=== PATIENT | female | born 1980 | race Caucasian/White ===

== ENCOUNTER 2016-11-20 16:57 | Emergency (ER) | payer MEDICAID ==
[2016-11-20 17:26] VITALS: BP 104/79; PULSE 88; RESP 18; TEMP 97.7; O2SAT 94
--- NOTE | 2016-11-20 17:48 | UCPHY ---
H & P Patient Type: Established Chief Complaint Nursing Narrative: R knee pain x 1 week, no trauma. cms intact. pain worse when going up and down stairs. Time Seen by Provider: 11/20/16 17:34 HPI/ROS: CHIEF COMPLAINT: Right knee pain HISTORY OF PRESENT ILLNESS: Patient is a 36-year-old healthy female who comes to the Urgent Care with her daughter who is also ill. The patient thought that she would get her knee evaluated while she was here. She has pain in her right knee when walking up the stairs. It does not hurt when she is not moving. She thinks that it began hurting after she was sitting for too long style while doing laundry. No swelling. No trauma. No clicking. No erythema. REVIEW OF SYSTEMS: Constitutional: denies: chills, fever, recent illness, recent injury EENTM: denies: blurred vision, double vision, nose congestion Respiratory: denies: cough, shortness of breath Cardiac: denies: chest pain, irregular heart rate, lightheadedness, palpitations Gastrointestinal/Abdominal: denies: abdominal pain, diarrhea, nausea, vomiting, blood streaked stools Genitourinary: denies: dysuria, frequency, hematuria, pain Musculoskeletal: See HPI Skin: denies: lesions, rash, jaundice, bruising Neurological: denies: headache, numbness, paresthesia, tingling, dizziness, weakness Hematologic/Lymphatic: denies: blood clots, easy bleeding, easy bruising Immunologic/allergic: denies: HIV/AIDS, transplant EXAM: GENERAL: Well-appearing, well-nourished and in no acute distress. HEAD: Atraumatic, normocephalic. EYES: Pupils equal round and reactive to light, extraocular movements intact, sclera anicteric, conjunctiva are normal. ENT: TMs normal, nares patent, oropharynx clear without exudates. Moist mucous membranes. NECK: Normal range of motion, supple without lymphadenopathy or JVD. LUNGS: Breath sounds clear to auscultation bilaterally and equal. No wheezes rales or rhonchi. HEART: Regular rate and rhythm without murmurs, rubs or gallops. ABDOMEN: Soft, nontender, normoactive bowel sounds. No guarding, no rebound. No masses appreciated. BACK: No CVA tenderness, no spinal tenderness, step-offs or deformities EXTREMITIES: Right knee pain, no effusion or swelling. No erythema. No weakness or numbness. Normal range of motion. No difficulty ambulating. NEUROLOGICAL: Cranial nerves II through XII grossly intact. Normal speech, normal gait. 5/5 strength, normal movement in all extremities, normal sensation PSYCH: Normal mood, normal affect. SKIN: Warm, dry, normal turgor, no visible rashes or lesions. Source: Patient Exam Limitations: No limitations - Personal History LMP (Females 10-55): Now Current Tetanus Diphtheria and Acellular Pertussis (TDAP): Yes - Medical/Surgical History Hx Asthma: Yes Hx Chronic Respiratory Disease: No Hx Diabetes: No Hx Cardiac Disease: No Hx Renal Disease: No Hx Cirrhosis: No Hx Alcoholism: No Hx HIV/AIDS: No Hx Splenectomy or Spleen Trauma: No Other PMH: ASTHMA - Family History Significant Family History: No pertinent family hx - Social History Smoking Status: Never smoked Alcohol Use: Sober Drug Use: None Constitutional: Initial Vital Signs Temperature (C) 36.5 C 11/20/16 17:23 Heart Rate 88 11/20/16 17:23 Respiratory Rate 18 11/20/16 17:23 Blood Pressure 104/79 11/20/16 17:23 O2 Sat (%) 94 11/20/16 17:23 O2 Delivery Mode Room Air Allergies/Adverse Reactions: No Known Allergies Allergy (Verified 11/20/16 17:23) Home Medications: Medication Instructions Recorded Albuterol [Proventil Inhaler HFA 01/14/16 (*)] Medical Decision Making - Diagnostics Imaging: Imaging Impressions Knee X-Ray 11/20/16 17:34 Impression: Right knee negative for fracture. If symptoms persist, MRI could be considered for further evaluation. X-ray: KNEE X-RAY was obtained. I viewed the images myself on the PACS system. My interpretation of the images is: NEGATIVE. The radiologist interpretation is above. ED Course/Re-evaluation: Discussed the patient's x-ray results. She is happy. She is primarily concerned about her daughter at this point. She is able to ambulate. We discussed follow-up and anti-inflammatory use. Discussed indications for returning. Differential Diagnosis: Partial list of the Differential diagnosis considered include but were not limited to; arthritis, bursitis, tendonitis and although unlikely based on the history and physical exam, I also considered fracture, dislocation, gout, septic joint. I discussed these differential diagnoses and the plan with the patient as well as the usual and expected course. The patient understands that the diagnosis is provisional and that in medicine we are not always correct and that further workup is often warranted. Usual and customary warnings were given. All of the patient's questions were answered. The patient was instructed to return to the emergency department should the symptoms at all worsen or return, otherwise to followup with the physician as we discussed. Departure - Departure Disposition: Home, Routine, Self-Care Clinical Impression: Knee pain, right Qualifiers: Chronicity: acute Qualified Code(s): M25.561 - Pain in right knee Condition: Fair Instructions: Knee Pain (ED) Referrals: Jai Raymond MD [Medical Doctor] - As per Instructions Stand Alone Forms: School Excuse - PQRS PQRS Measurement: Not applicable
== END 2016-11-20 18:55 | disposition home or self-care (01) ==
LOC: CED 16:57
DX: M25.561 Pain in right knee (principal)
CPT/HCPCS: 73564-PO; G0463-PO